=== PATIENT | female | born 1985 | race Caucasian/White ===

== ENCOUNTER 2016-11-06 13:04 | Emergency (ER) | payer OTHER ==
[~2016-11-06] VITALS: Ht 167.6 cm; Wt 59.0 kg
[2016-11-06 13:06] VITALS: Ht 167.6 cm; Wt 59.0 kg
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
[2016-11-06] MEDS ORDERED: KETOROLAC 60 MG INJ IM STA (14:57)
[2016-11-06] MEDS ORDERED: NAPROXEN 500 MG TAB PO ONE (15:30)
[2016-11-06] MEDS ORDERED: NAPR-260 PO (15:53)
[2016-11-06] MEDS ORDERED: CYCL-319 PO (15:53)
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
[2016-11-06 16:36] VITALS: BP 110/71; PULSE 69; RESP 12; TEMP 98.4
== END 2016-11-06 16:38 | disposition home or self-care (01) ==
LOC: FTE 13:04
DX: S20.221A Contusion of right back wall of thorax, initial encounter (principal); S30.0XXA Contusion of lower back and pelvis, initial encounter; V43.53XA Car driver injured in collision with pick-up truck in traffic accident, initial encounter
CPT/HCPCS: 71020; 72072; 72100; Z7502; Z7610; J1885